=== PATIENT | male | born 1970 | race Caucasian/White ===

== ENCOUNTER 2017-09-30 05:54 | Emergency (ER) | payer BC ==
[~2017-09-30] VITALS: Ht 172.7 cm; Wt 86.4 kg
[2017-09-30 05:58] VITALS: BP 169/77; TEMP 100.2
[2017-09-30] MEDS ORDERED: FLEXERIL 1010 MG/TAB PO (07:15)
[2017-09-30 07:20] VITALS: PULSE 90
== END 2017-09-30 07:22 | disposition home or self-care (01) ==
LOC: COL.ER 05:54
DX: B34.9 Viral infection, unspecified (principal); M54.6 Pain in thoracic spine; Z90.49 Acquired absence of other specified parts of digestive tract
CPT/HCPCS: J1885